=== PATIENT | male | born 1970 | race African-American/Black ===

== ENCOUNTER → 2016-08-21 | Outpatient (CLI) | payer BC ==
--- NOTE | 2016-08-21 12:08 | DIAGNOSTIC IMAGING REPORT ---
VENOUS DOPPLER LEFT ARM UPPER EXTREMITY VENOUS DOPPLER HISTORY: Pain. Edema. SWELLING OF FOREARM, PAIN IN LEFT ELBOW R/O DVT COMPARISON STUDY: None. FINDINGS: The internal jugular vein is patent. There is normal flow within the subclavian vein. There is normal flow and compressibility within the left axillary, basilic, brachial, radial, ulnar, and visualized cephalic veins. IMPRESSION: No DVT within the upper extremity. Electronically signed by: Eb Bess M.D. 08/21/2016 12:06 PM Dictated Date/Time: 08/21/2016 12:06 PM
== END | disposition home or self-care (01) ==
LOC: C.ULTRBC 11:27
PROVIDERS: ATTEND Internal Medicine
DX: R22.30 Localized swelling, mass and lump, unspecified upper limb (principal); M25.522 Pain in left elbow